=== PATIENT | male | born 1965 | race Caucasian/White ===

== ENCOUNTER 2024-05-28 17:34 | Emergency (ER) | payer OTHER, SELFPAY ==
[2024-05-28 17:34] VITALS: BP 140/92; PULSE 95; RESP 20; TEMP 36.4; O2SAT 95
--- NOTE | 2024-05-28 17:49 | EDS_ITS ---
HPI History of Present Illness Chief Complaint: Allergic Reaction Informant: patient Onset/Context/Timing Onset: Today and Hours (1) Context: Sudden Onset Timing: Continuous Quality: Constricting Location: Substernal Worsened by: Nothing Relieved by: Nothing Narrative Narrative: Patient presents with possible allergic reaction that began today. Patient states he took a Claritin and shortly after that he developed hives and itching. Patient states he also started having some pain in his chest. Patient describes this as a constricted feeling. Patient states it is mainly over the substernal area. Patient states nothing makes it worse and nothing makes it better. Patient admits to some shortness of breath. Patient denies any fevers or chills. Patient denies any nausea or vomiting. PFSH PFS Medical History no medical history no medical history Home Medications ?Medication ?Instructions ?Recorded ?Last Taken ?Type NK 05/28/24 Unknown History prednisone 20 mg tablet 60 mg (3 x 20 mg) PO DAILY #15 05/28/24 Unknown Rx TABLETS Allergy/AdvReac Type Severity Reaction Status Date / Time loratadine (From Claritin) Allergy Intermediate Itching Verified 05/28/24 17:37 Surgical History no surgical history no surgical history Social History Smoking Status: Never smoker ROS ROS ED Constitutional Constitutional ED: Denies chills or fever(s) Eyes Eyes: Denies blurry vision or change in vision ENT ENT ED: Denies rhinorrhea or sore throat Cardiovascular Cardiovascular: Reports chest pain; Denies palpitations Respiratory/Chest Respiratory/Chest: Reports dyspnea; Denies cough Gastrointestinal Gastrointestinal: Denies nausea or vomiting Genitourinary Genitourinary ED: Denies dysuria or hematuria Musculoskeletal Musculoskeletal: Denies back pain or neck pain Integumentary Reports rash; Denies abscess Neurologic Neurologic: Denies headache(s) or weakness Allergic/Immunologic Allergic/Immunologic ED: Reports urticaria; Denies mouth swelling EXAM Physical Exam Const Vital Signs: 05/28/24 17:34 05/28/24 19:34 05/28/24 19:55 Temperature 97.6 F L 97.6 F L Temperature Source Temporal Pulse Rate 95 71 66 Respiratory Rate 20 H 16 18 Blood Pressure 140/92 H 139/97 H 139/97 H Blood Pressure Mean 108 111 111 Pulse Ox 95 94 95 Oxygen Delivery Method Room Air Room Air Positive well nourished and well developed General Appearance ED: well developed and NAD HEENT Reports moist mucous membranes HEENT Narrative: Oropharynx is clear. Airway is patent. There is no pharyngeal edema noted. Neck supple and no JVD Resp normal respiratory effort and clear to auscultation bilaterally Cardio regular rate and regular rhythm GI non-tender and non-distended Palpation: soft Neuro oriented x3, CN's II-XII intact bilaterally and no sensory deficits noted Sensorium / Orientation: alert Motor Exam: strength 5/5 throughout Skin Skin Narrative: There is a patchy erythematous urticarial rash noted. There are no vesicles or pustules noted. There is no involvement of mucous membranes. There is no involvement of the palms or soles. There are no petechia noted. MDM MDM MDM Narrative Medical decision making narrative: Differential diagnosis includes cardiac dysrhythmia, cardiac ischemia, electrolyte abnormality, pneumonia, pneumothorax, allergic reaction, and anxiety. EKG will be obtained to assess for cardiac dysrhythmia and cardiac ischemia. Chest x-ray will be obtained to assess for pneumonia and pneumothorax. CBC will be obtained to assess for leukocytosis and anemia. Basic metabolic profile will be obtained to assess for electrolyte abnormality and renal function. High-sensitivity troponin will be obtained to assess for cardiac ischemia. 2-hour repeat high-sensitivity troponin will be obtained to assess for ongoing cardiac ischemia. Lab Data Attestation: I reviewed the patient's lab results. Lab results narrative: CBC was reviewed and was within normal limits. Basic metabolic profile was reviewed and was within normal limits. High-sensitivity troponin was reviewed and was normal. Labs: Laboratory Results - last 24 hr 05/28/24 18:05 WBC 8.8 RBC 5.55 Hgb 16.5 Hct 46.3 MCV 83.4 MCH 29.7 MCHC 35.6 RDW Std Deviation 40.1 RDW Coeff of Herrera 13.2 Plt Count 217 MPV 10.6 Immature Gran % (Auto) 0.300 Neut % (Auto) 58.5 Lymph % (Auto) 31.1 [place] % (Auto) 8.7 Eos % (Auto) 1.3 Baso % (Auto) 0.1 Absolute Neuts (auto) 5.1 Absolute Lymphs (auto) 2.73 Nucleated RBC % 0 Sodium 137 Potassium 3.5 Chloride 104 Carbon Dioxide 26.0 Anion Gap 7 BUN 19 H Creatinine 1.29 Est GFR (MDRD) Af Amer 73 Est GFR (MDRD) Non-Af 60 BUN/Creatinine Ratio 14.7 Glucose 109 H Calcium 9.6 Troponin I High Sens 31 Radiography Chest X-Ray - ED: 2 View, Read by ED Physician, Read by Radiologist and No Acute Disease Diagnostic Testing: Clinical Impression(s) from Imaging Studies Chest X-Ray 05/28/24 18:30 IMPRESSION: No radiographic evidence of acute cardiopulmonary disease. Electronically Signed: Torito Carlton MD at 18:55 EDT , PA and lateral chest x-ray was obtained. There are 2 views. On my independent interpretation, lung mueller are clear. There is normal cardiac silhouette. Bony thorax is normal. There is no acute process noted. Radiologist also interpreted the x-ray and agrees. EKG Initial EKG: Attestation: I personally reviewed and interpreted this EKG as follows: Interpretation: Sinus Rhythm (75) and No Acute Injury Pattern Comments: EKG was obtained. On my independent interpretation, it showed a normal sinus rhythm with a rate of 75. PA interval, QRS interval, and QTc intervals were all normal. [place] was normal. There are no acute ST or T wave changes. Prior EKG tracings: not available for review Prior: No Prior Treatment and Re-Evaluation :: Patient was given Solu-Medrol and Benadryl. Patient was feeling better on reevaluation. Patient was advised of his findings. Patient was given a prescription for a short course of prednisone. Patient was instructed to use [id number] Benadryl as needed for any itching. Patient was instructed to follow-up with his primary care physician in 5 to 7 days. Patient understood and was agreeable with the plan. All questions were answered. Discharge Plan Triage Chief Complaint: Allergic Reaction ED Provider: Hiram Noonan Dx/Rx/DC Orders Clinical Impression: Allergic reaction, Chest pain Instructions: ED General Allergic Reactions Prescriptions: New prednisone 20 mg tablet 60 mg PO DAILY Qty: 15 0RF No Action NK Primary Care Provider: Coleen Lam Referrals: Coleen Lam MD [Primary Care Provider] - 5-7 Days [facility] Doctor,Out of [Non-Staff] - Print Language: [place] Disposition Disposition: Home, Self Care Discharge Date/Time: 05/28/24 20:35
--- NOTE | 2024-05-28 17:55 | EKG12_ITS ---
Test Reason : ALLERGIC REACTION Blood Pressure : / mmHG Vent. Rate : 075 BPM Atrial Rate : 075 BPM P-R Int : 168 ms QRS Dur : 088 ms QT Int : 386 ms P-R-T Axes : 055 052 049 degrees QTc Int : 431 ms Normal sinus rhythm Normal ECG Confirmed by Tam Bautista ([id number]), medical transcription editor RAVEN SOUSA ([id number]) on 05/31/2024 8:15:59 AM Referred By: Confirmed By:Tam Bautista
[2024-05-28 18:19] LABS: Absolute Lymphocyte Count 2.73 X10^3/uL (0.83-4.51); Absolute Neutrophil Count 5.1 X10^3/uL (2.0-7.7); Basophil# 0.01 X10^3/uL; Basophil% 0.1 % (0-1); Eosinophil# 0.11 X10^3/uL; Eosinophils% 1.3 % (0-5); Hematocrit 46.3 % (40-54); Hemoglobin 16.5 g/dL (13.0-16.5); Lymphocyte # 2.73 X10^3/ul (0.83-4.51); Lymphocyte % 31.1 % (19-41); Mean Corp Hgb Conc 35.6 g/dL (32-36); Mean Corpuscular Hgb 29.7 pg (27.0-32.0); Mean Corpuscular Volume 83.4 fL (80-94); Mean Platelet Vol. 10.6 fl (6.2-12.0); Monocyte# 0.76 X10^3/uL; Monocyte% 8.7 % (0-10); NRBC Flagged by Analyzer 0 % (0-5); Neutrophil # 5.14 X10^3/uL (2.7-7.7); Neutrophil % 58.5 % (47-70); Platelet Count 217 K/mm3 (150-450); RBC Distribution Width CV 13.2 % (11.6-14.6); RBC Distribution Width SD 40.1 fl (35.1-43.9); Red Blood Count 5.55 M/mm3 (4.6-6.2); White Blood Count 8.8 K/mm3 (4.4-11.0)
[2024-05-28] MEDS: 0.9% Normal Saline (1000mL) 1,000 ML 1000 ML IV (18:25)
[2024-05-28] MEDS: DiphenhydrAMINE 50 MG/ML Syringe 25 MG IV (18:26)
[2024-05-28] MEDS: MethylPREDNISolone 125 MG/2 ML Vial 60 MG IV (18:26)
--- NOTE | 2024-05-28 18:30 | RAD_ITS ---
INDICATION: Dyspnea EXAMINATION/TECHNIQUE: X-RAY - XR Chest 2 Views COMPARISON: None. FINDINGS: LINES/DEVICES: None. LUNGS: No consolidation, edema or effusion. No pneumothorax. MEDIASTINUM AND CARDIOVASCULAR STRUCTURES: Cardiac silhouette not enlarged. Central airways and mediastinal contour are unremarkable. BONES AND SOFT TISSUES: Unremarkable. RAD/Chest PA and Lateral IMPRESSION: No radiographic evidence of acute cardiopulmonary disease. Electronically Signed: Torito Carlton MD at 18:55 EDT ,
[2024-05-28 18:47] LABS: Anion Gap 7 (5-15); BUN 19 mg/dL (7-18); BUN/Creat Ratio 14.7 RATIO (10-20); Calcium,Total 9.6 mg/dL (8.5-10.1); Chloride 104 mmol/L (98-107); Creatinine, Serum 1.29 mg/dL (0.70-1.30); EST Glomerular Filtration Rate 60 mL/min (>60); Est Glom Filt Rate - Afr Amer 73 mL/min (>60); Glucose 109 mg/dL (74-106); Potassium 3.5 mmol/L (3.5-5.1); Sodium Level 137 mmol/L (136-145); Troponin-I HS 31 pg/mL (3.0-78.0)
[2024-05-28 19:34] VITALS: BP 139/97; PULSE 71; RESP 16; O2SAT 94
[2024-05-28 19:51] VITALS: BMI 25.8
[2024-05-28 19:55] VITALS: BP 139/97; PULSE 66; RESP 18; TEMP 36.4; O2SAT 95
== END 2024-05-28 20:35 | disposition home or self-care (01) ==
PROVIDERS: Emergency Provider Emergency Medicine; PCP Internal Medicine; Visit Provider Emergency Medicine
DX: T78.40XA Allergy, unspecified, initial encounter (principal); R07.9 Chest pain, unspecified; X58.XXXA Exposure to other specified factors, initial encounter
CPT/HCPCS: 71046; 80048; 84484; 85025; 93005; 96361; 96374; 96375; 99284; J7030